=== PATIENT | male | born 1980 | race Caucasian/White ===

== ENCOUNTER → 2021-10-19 | Outpatient (CLI) | payer BC, OTHER ==
[~2021-10-19] MED LIST: BACTRIM 400-801 EACH PO; BACTRIM DS TAB1 EACH PO; BUPRENORPHIN-N1 EACH SL; CARAFATE1 GM PO; CEPHALEXIN500 MG PO; CLEOCIN HCL300 MG PO; DOSS PO; KEFLEX CAP 500500 MG PO; NAPROSYN500 MG PO; OMEPRAZOLE40 MG PO; OXACILLIN SODIUM2 GM INJ; PERCOCET 5-3251 EACH PO; PHENERGAN 12.12.5 M1 PO; PROTONIX 40 MG40 M1 PO; PROZAC40 MG PO; TOPROL XL25 MG PO
== END ==
LOC: KOH-I 12:08
DX: M25.521 Pain in right elbow (principal)
CPT/HCPCS: 73080

== ENCOUNTER → 2021-11-05 | Outpatient (CLI) | payer BC, OTHER | LOC: MRI 12:42 | DX: M25.721 Osteophyte, right elbow (principal); R93.6 Abnormal findings on diagnostic imaging of limbs | CPT/HCPCS: 73221 ==